=== PATIENT | female | born 1950 | race Caucasian/White ===

== ENCOUNTER 2016-10-27 10:18 | Outpatient (CLI) | payer OTHER ==
--- NOTE | 2016-10-27 11:44 | DIAGNOSTIC IMAGING REPORT ---
PROCEDURE: DEXA BONE DENSITY STUDY CLINICAL INDICATION: OSTEOPENIA COMPARISON: None. FINDINGS: LUMBAR SPINE: Bone mineral density 1.070 g/cm2, T score 0.2 normal LEFT HIP: Bone mineral density 0.774 g/cm2, T score -1.4 osteopenia LEFT FEMORAL NECK: Bone mineral density 0.675 g/cm2, T score -1.6 osteopenia FRACTURE RISK CALCULATION ( when applicable): 10-year fracture risk of a major osteoporotic fracture 9.2% and of a hip fracture 1.1% (T score greater or equal to -1.0 to: NORMAL) (T score from -1.1 to -2.4: OSTEOPENIA) (T score ess than or equal to -2.5: OSTEOPOROSIS) IMPRESSION: 1. Osteopenia hip and femoral neck
== END 2016-10-27 23:00 ==
LOC: XR SRH 10:18
DX: M85.88 Other specified disorders of bone density and structure, other site (principal)